=== PATIENT | male | born 1945 | race Caucasian/White ===

== ENCOUNTER → 2020-07-31 15:42 | Outpatient (REF) | payer MEDICARE, SELFPAY | LOC: ANHLAB 15:42 | PROVIDERS: Visit Provider Surgery Plastic and Reconstructive Surgery | DX: D22.39 Melanocytic nevi of other parts of face (principal) | CPT/HCPCS: 88305 ==

== ENCOUNTER 2022-01-19 08:00 | Outpatient (NON) | payer MEDICARE, SELFPAY | END 2022-01-19 08:01 | disposition home or self-care (01) | LOC: ANHLAB 01-21 11:59 | PROVIDERS: Visit Provider Nurse Practitioner | DX: C44.229 Squamous cell carcinoma of skin of left ear and external auricular canal (principal); D04.71 Carcinoma in situ of skin of right lower limb, including hip; D22.5 Melanocytic nevi of trunk | CPT/HCPCS: 88305; 88342 ==

== ENCOUNTER 2022-02-16 12:57 | Outpatient (NON) | payer MEDICARE, SELFPAY | END 2022-02-16 12:58 | disposition home or self-care (01) | PROVIDERS: PCP Nurse Practitioner; Visit Provider Nurse Practitioner | DX: D22.5 Melanocytic nevi of trunk (principal) | CPT/HCPCS: 88305; 88331 ==

== ENCOUNTER 2022-10-20 09:00 | Outpatient (NON) | payer MEDICARE, SELFPAY | END 2022-10-20 09:01 | disposition home or self-care (01) | LOC: ANHLAB 10-21 16:14 | PROVIDERS: PCP Nurse Practitioner; Visit Provider Nurse Practitioner | DX: C44.722 Squamous cell carcinoma of skin of right lower limb, including hip (principal) | CPT/HCPCS: 88305 ==

== ENCOUNTER 2022-11-26 08:00 | Outpatient (NON) | payer MEDICARE, SELFPAY | END 2022-11-26 08:01 | disposition home or self-care (01) | LOC: ANHLAB 11-27 13:03 | PROVIDERS: Visit Provider Nurse Practitioner | DX: I87.2 Venous insufficiency (chronic) (peripheral) (principal) | CPT/HCPCS: 88304 ==